=== PATIENT | female | born 1935 | race Caucasian/White ===

== ENCOUNTER → 2018-11-25 | Outpatient (CLI) | payer MEDICARE, MEDICAID | END | disposition home or self-care (01) | LOC: CFH 09:04 | PROVIDERS: ATTEND Internal Medicine | DX: M85.88 Other specified disorders of bone density and structure, other site (principal) | CPT/HCPCS: 77080 ==

== ENCOUNTER 2019-12-01 08:10 | Outpatient (CLI) | payer MEDICARE, MEDICAID | END 2019-12-01 23:59 | disposition home or self-care (01) | LOC: CFH 08:10 → EDSTATUS 08:45 → CFH 23:59 | PROVIDERS: ATTEND Internal Medicine | DX: E04.1 Nontoxic single thyroid nodule (principal); E21.3 Hyperparathyroidism, unspecified | CPT/HCPCS: 76536 ==